=== PATIENT | female | born 1955 | race African-American/Black ===

== ENCOUNTER 2018-10-19 18:50 | Observation (INO) ==
[2018-10-19 19:40] LABS: Apearance,Urine CLOUDY (Clear); Bacteria,Urine Many /HPF (Few); Bilirubin,Urine Small mg/dL (Negative); Blood, Urine Moderate mg/dL (Negative); Glucose,Urine (UA) Negative (Negative); Ketones,Urine 5 mg/dL (Negative); Mucus,Urine Few /LPF (Occasional); Nitrite,Urine Negative (Negative); Protein,Urine 100 MG/DL; RBC,Urine 70 /HPF (0-4); Urine Color Yellow (Yellow); Urine Specific Gravity 1.026 (1.001-1.035); WBC,Urine 2995 /HPF (0-6)
[2018-10-19 19:43] LABS: Barbiturates Screen,Urine Negative (Negative); Benzodiazepines Screen,Urine Negative (Negative); Cannabinoid Screen,Urine Positive (Negative); Opiate Screen,Urine Negative (Negative); Phencyclidine Screen,Urine Negative (Negative)
[2018-10-19 19:52] LABS: Basophils # 0.1 10*3/uL (0.0-0.2); Basophils % 0.6 % (0.0-0.8); Eosinophils # 0.1 10*3/uL (0.0-0.87); Hematocrit 32.8 VOL% (35.7-47.0); Hemoglobin 10.3 GM/DL (12.0-16.0); Immature Granulocytes % 0.2 %; Immature Granulocytes Absolute 0.02 #; Lymphocytes # 2.1 10*3/uL (1.4-4.0); Lymphocytes % 25.7 % (21.3-54.2); Mean Corpuscular HGB Conc 31.4 GM/DL (32-36); Mean Corpuscular Volume 84.5 FL (87-102); Mean Platelet Volume 9.3 FL (9.6-12.0); Monocytes % 7.1 % (1.7-12.7); Neutrophils % 65.4 % (38.7-73.9); Platelet Count 376 T/CUMM (130-400); Red Blood Count 3.88 MC/CUMM (3.8-5.5); Red Cell Distribution Width 13.9 % (9.3-17.3)
[2018-10-19] MEDS ORDERED: cefTRIAXone 1,000 MG in SODIUM CHLORIDE 0.9% 100 ML IV STA (20:15)
[2018-10-19 20:22] LABS: Albumin 3.5 G/DL (3.4-5.0); Bilirubin,Total 0.5 MG/DL (0.2-1.0); Calcium 9.3 MG/DL (8.5-10.1); Osmolality,Calculated 277.8 MOS/KG (273-304); Total Protein 8.1 G/DL (6.4-8.3)
[2018-10-19] MEDS ORDERED: SODIUM CHLORIDE 0.9% 1,000 ML IV STA (20:39)
[2018-10-19] MEDS ORDERED: DEXTROSE 50% 25 GM/50 ML VIAL IV PRN (22:42)
[2018-10-19] MEDS ORDERED: ACETAMINOPHEN 325 MG TABLET PO PRN (22:42)
[2018-10-19] MEDS ORDERED: ONDANSETRON 4 MG/2 ML VIAL IV PRN (22:42)
[2018-10-19] MEDS ORDERED: GLUCAGON 1 MG VIAL IM PRN (22:42)
[2018-10-19] MEDS: SODIUM CHLORIDE 0.9% 1,000 ML IV SCH (23:51)
[2018-10-20 05:50] LABS: Basophils # 0.1 10*3/uL (0.0-0.2); Basophils % 0.9 % (0.0-0.8); Eosinophils # 0.1 10*3/uL (0.0-0.87); Eosinophils % 1.9 % (0.00-10.9); Hematocrit 28.7 VOL% (35.7-47.0); Hemoglobin 9.1 GM/DL (12.0-16.0); Immature Granulocytes % 0.3 %; Immature Granulocytes Absolute 0.02 #; Lymphocytes # 3.6 10*3/uL (1.4-4.0); Lymphocytes % 55.3 % (21.3-54.2); Mean Corpuscular HGB Conc 31.7 GM/DL (32-36); Mean Corpuscular Volume 85.4 FL (87-102); Mean Platelet Volume 9.8 FL (9.6-12.0); Monocytes % 8.7 % (1.7-12.7); Neutrophils % 32.9 % (38.7-73.9); Platelet Count 318 T/CUMM (130-400); Red Blood Count 3.36 MC/CUMM (3.8-5.5); Red Cell Distribution Width 13.9 % (9.3-17.3); White Blood Count 6.5 T/CUMM (4-12)
[2018-10-20 06:16] LABS: Calcium 8.6 MG/DL (8.5-10.1); Osmolality,Calculated 281.3 MOS/KG (273-304); Risk Ratio 2.43; Thyroid Stimulating Hormone 0.715 uIU/ml (0.358-3.74); VLDL CHOLESTEROL 16.2 MG/DL
[2018-10-20 06:17] LABS: Atypical Lymphocytes Few; Eosinophils 3 % (0-10); Hypochromasia 1+; Lymphocytes 56 % (20-55); Segmented Neutrophils 32 % (50-85); Total Cells Counted 100
[2018-10-20 06:18] LABS: % Iron Saturation 28.3 % (18-50); Ferritin 289.9 ng/ml (8-252); Microcytosis Slight; Platelet Estimate Normal
[2018-10-20 06:20] LABS: Folate 6.2 NG/ML (5.4-24.0); Vitamin B12 442 PG/ML (211-911)
[2018-10-20 06:56] LABS: Sedimentation Rate-Westergren 81 MM/HR (0-30)
[2018-10-20] MEDS: SODIUM CHLORIDE 0.9% 1,000 ML IV SCH ×2 (08:04→17:18)
[2018-10-20] MEDS: INSULIN LISPRO 100 UNIT/ML SUBCUT SCH ×4 (08:05→21:18)
[2018-10-20 09:47] LABS: Hemoglobin A1 (Alkaline) 96.7 % (96.5-98.5); Hemoglobin A2 (Alkaline) 3.3 % (1.5-3.5)
[2018-10-20] MEDS: cefTRIAXone 1,000 MG in SYRINGE 1 EACH IV SCH (21:21)
[2018-10-21] MEDS: SODIUM CHLORIDE 0.9% 1,000 ML IV SCH ×4 (01:15→20:01)
[2018-10-21 04:09] LABS: Basophils # 0.1 10*3/uL (0.0-0.2); Basophils % 1.1 % (0.0-0.8); Eosinophils # 0.2 10*3/uL (0.0-0.87); Eosinophils % 3.7 % (0.00-10.9); Hematocrit 28.2 VOL% (35.7-47.0); Hemoglobin 9.2 GM/DL (12.0-16.0); Immature Granulocytes % 0.2 %; Immature Granulocytes Absolute 0.01 #; Lymphocytes # 3.4 10*3/uL (1.4-4.0); Lymphocytes % 63.1 % (21.3-54.2); Mean Corpuscular HGB Conc 32.6 GM/DL (32-36); Mean Corpuscular Volume 83.7 FL (87-102); Mean Platelet Volume 9.9 FL (9.6-12.0); Monocytes % 6.8 % (1.7-12.7); Neutrophils % 25.1 % (38.7-73.9); Platelet Count 328 T/CUMM (130-400); Red Blood Count 3.37 MC/CUMM (3.8-5.5); Red Cell Distribution Width 13.9 % (9.3-17.3); White Blood Count 5.4 T/CUMM (4-12)
[2018-10-21 04:36] LABS: Calcium 8.8 MG/DL (8.5-10.1); Osmolality,Calculated 284.8 MOS/KG (273-304)
[2018-10-21 05:07] LABS: Eosinophils 2 % (0-10); Hypochromasia 1+; Lymphocytes 57 % (20-55); Microcytosis 1+; Platelet Estimate Normal; Segmented Neutrophils 36 % (50-85); Total Cells Counted 100
[2018-10-21] MEDS ORDERED: LACTATED RINGERS 1,000 ML IV SCH (08:00)
[2018-10-21] MEDS: INSULIN LISPRO 100 UNIT/ML SUBCUT SCH ×4 (08:36→20:52)
[2018-10-21] MEDS ORDERED: PROPOFOL 200 MG/20 ML VIAL IV ONE (09:00)
[2018-10-21] MEDS ORDERED: LIDOCAINE 2% 5 ML VIAL ONE (09:00)
[2018-10-21] MEDS ORDERED: DEXTROSE 10% 250 ML BAG IV PRN (15:17)
[2018-10-21] MEDS ORDERED: GLUCAGON 1 MG VIAL IM PRN (15:17)
[2018-10-21] MEDS: METOPROLOL TARTRATE 50 MG TABLET PO SCH (17:57)
[2018-10-21] MEDS ORDERED: PHENOL 1.4% THROAT SPRAY 177 ML BOTTLE PO PRN (18:14)
[2018-10-21] MEDS: cefTRIAXone 1,000 MG in SYRINGE 1 EACH IV SCH (20:49)
[2018-10-21] MEDS ORDERED: ATORVASTATIN 80 MG TABLET PO SCH (21:00)
[2018-10-22] MEDS: SODIUM CHLORIDE 0.9% 1,000 ML IV SCH ×2 (04:15→13:31)
[2018-10-22 04:48] LABS: Calcium 8.6 MG/DL (8.5-10.1)
[2018-10-22 04:58] LABS: Basophils # 0.1 10*3/uL (0.0-0.2); Basophils % 1.1 % (0.0-0.8); Eosinophils # 0.2 10*3/uL (0.0-0.87); Eosinophils % 3.2 % (0.00-10.9); Hematocrit 26.4 VOL% (35.7-47.0); Hemoglobin 8.6 GM/DL (12.0-16.0); Immature Granulocytes % 0.2 %; Immature Granulocytes Absolute 0.01 #; Lymphocytes # 3.6 10*3/uL (1.4-4.0); Lymphocytes % 63.9 % (21.3-54.2); Mean Corpuscular HGB Conc 32.6 GM/DL (32-36); Mean Corpuscular Volume 83.3 FL (87-102); Monocytes % 6.7 % (1.7-12.7); Neutrophils % 24.9 % (38.7-73.9); Platelet Count 330 T/CUMM (130-400); Red Blood Count 3.17 MC/CUMM (3.8-5.5); Red Cell Distribution Width 13.7 % (9.3-17.3); White Blood Count 5.6 T/CUMM (4-12)
[2018-10-22] MEDS ORDERED: MAGNESIUM SULF RIDER 4 GM in PREMIX 1 EACH IV PRN (05:41)
[2018-10-22] MEDS ORDERED: MAGNESIUM SULF RIDER 2 GM in PREMIX 1 EACH IV PRN (05:41)
[2018-10-22] MEDS ORDERED: POTASSIUM CHLORIDE 20 MEQ TABLET PO PRN (05:41)
[2018-10-22 05:56] LABS: Band Neutrophils 5 % (0-10); Eosinophils 4 % (0-10); Lymphocytes 61 % (20-55); Platelet Estimate Normal; Segmented Neutrophils 22 % (50-85); Total Cells Counted 100
[2018-10-22 05:57] LABS: Ovalocytes 1+
[2018-10-22] MEDS: INSULIN LISPRO 100 UNIT/ML SUBCUT SCH ×2 (08:29→12:12)
[2018-10-22] MEDS: METOPROLOL TARTRATE 50 MG TABLET PO SCH (09:41)
[2018-10-22 11:42] VITALS: BP 135/71
== END 2018-10-22 15:08 | disposition home or self-care (01) ==
LOC: EDUNIT# → EDBD → N.ED 18:50 → N.EDINP 18:50 → N.TELEN 22:08
PROVIDERS: ADMIT Internal Medicine; ATTEND Internal Medicine

== ENCOUNTER 2019-06-30 07:30 | Inpatient (IN) ==
[2019-06-26 11:32] LABS: Basophils # 0.1 10*3/uL (0.0-0.2); Basophils % 0.9 % (0.0-0.8); Eosinophils # 0.1 10*3/uL (0.0-0.87); Hemoglobin 13.5 GM/DL (12.0-16.0); Immature Granulocytes % 0.3 %; Immature Granulocytes Absolute 0.02 #; Lymphocytes # 2.9 10*3/uL (1.4-4.0); Lymphocytes % 41.3 % (21.3-54.2); Mean Corpuscular HGB Conc 32.1 GM/DL (32-36); Mean Corpuscular Volume 85.4 FL (87-102); Mean Platelet Volume 9.9 FL (9.6-12.0); Monocytes % 6.1 % (1.7-12.7); Neutrophils % 49.4 % (38.7-73.9); Platelet Count 297 T/CUMM (130-400); Red Blood Count 4.92 MC/CUMM (3.8-5.5); Red Cell Distribution Width 12.9 % (9.3-17.3); White Blood Count 6.9 T/CUMM (4-12)
[2019-06-26 11:52] LABS: Calcium 9.1 MG/DL (8.5-10.1); Osmolality,Calculated 282.4 MOS/KG (273-304)
[~2019-06-30 07:30] MED LIST: ALVIMOPAN 12 MG CAPSULE PO ONE; ERTAPENEM 1,000 MG in SODIUM CHLORIDE 0.9% 100 ML IV ONE
[2019-06-30] MEDS ORDERED: DEXAMETHASONE 4 MG/1 ML VIAL ONE (08:50)
[2019-06-30] MEDS ORDERED: BUPIVACAINE MPF 0.25% 30 ML VIAL ONE (08:50)
[2019-06-30] MEDS ORDERED: ALVIMOPAN 12 MG CAPSULE ONE (09:16)
[2019-06-30] MEDS ORDERED: ERTAPENEM 1,000 MG VIAL ONE (09:16)
[2019-06-30] MEDS ORDERED: LACTATED RINGERS 1,000 ML IV SCH (09:30)
[2019-06-30] MEDS ORDERED: TISSUE ADHESIVE 1 EACH APPLICATOR TOP ONE (10:36)
[2019-06-30] MEDS ORDERED: INDOCYANINE GREEN 25 MG VIAL IV ONE (10:36)
[2019-06-30] MEDS ORDERED: SEVOFLURANE 1 UNIT/15 MINUTE INH ONE (15:09)
[2019-06-30] MEDS ORDERED: LIDOCAINE 2% 5 ML VIAL ONE (15:09)
[2019-06-30] MEDS ORDERED: propofoL 200 MG/20 ML VIAL IV ONE (15:09)
[2019-06-30] MEDS ORDERED: fentaNYL 100 MCG/2 ML VIAL ONE (15:10)
[2019-06-30] MEDS ORDERED: ONDANSETRON 4 MG/2 ML VIAL ONE ×2 (15:10→15:58)
[2019-06-30] MEDS ORDERED: METOPROLOL TARTRATE 5 MG/5 ML VIAL IV ONE (15:10)
[2019-06-30] MEDS ORDERED: LABETALOL 100 MG/20 ML VIAL IV ONE ×2 (15:10→15:45)
[2019-06-30] MEDS ORDERED: GLYCOPYRROLATE 0.4 MG/2 ML VIAL ONE (15:10)
[2019-06-30] MEDS ORDERED: SUCCINYLCHOLINE 200 MG/10 ML VIAL ONE (15:11)
[2019-06-30] MEDS ORDERED: NEOSTIGMINE 10 MG/10 ML VIAL ONE (15:11)
[2019-06-30] MEDS ORDERED: ROCURONIUM 100 MG/10 ML VIAL IV ONE (15:11)
[2019-06-30] MEDS ORDERED: MIDAZOLAM 2 MG/2 ML VIAL ONE (15:13)
[2019-06-30 15:57] LABS: Apearance,Urine CLEAR (Clear); Bilirubin,Urine Negative (Negative); Blood, Urine Negative (Negative); Glucose,Urine (UA) >=500 mg/dL (Negative); Ketones,Urine Negative (Negative); Nitrite,Urine Negative (Negative); Protein,Urine Negative; RBC,Urine <1 /HPF (0-4); Urine Color Straw (Yellow); Urine Specific Gravity 1.007 (1.001-1.035); Urine Urobilinogen < 2.0 EU/DL (0.2-1.0); WBC,Urine <1 /HPF (0-6)
[2019-06-30] MEDS: HYDROmorphone 2 MG/1 ML VIAL IV PRN ×3 (15:58→16:22)
[2019-06-30] MEDS ORDERED: HYDROmorphone 2 MG/1 ML VIAL ONE (15:58)
[2019-06-30] MEDS ORDERED: ONDANSETRON 4 MG/2 ML VIAL IV PRN ×2 (16:08→16:51)
[2019-06-30] MEDS ORDERED: HYDROmorphone 2 MG/1 ML VIAL IV PRN (16:51)
[2019-06-30] MEDS: KETOROLAC 30 MG/1 ML VIAL IV SCH ×2 (17:44→22:04)
[2019-06-30] MEDS: METOPROLOL TARTRATE 50 MG TABLET PO SCH (17:44)
[2019-06-30] MEDS: LACTATED RINGERS 1,000 ML IV SCH (17:47)
[2019-06-30 18:11] LABS: Basophils # 0.1 10*3/uL (0.0-0.2); Basophils % 0.3 % (0.0-0.8); Hematocrit 43.5 VOL% (35.7-47.0); Hemoglobin 14.1 GM/DL (12.0-16.0); Immature Granulocytes % 0.6 %; Lymphocytes # 1.2 10*3/uL (1.4-4.0); Lymphocytes % 7.3 % (21.3-54.2); Mean Corpuscular HGB Conc 32.4 GM/DL (32-36); Mean Corpuscular Volume 85.6 FL (87-102); Monocytes % 4.6 % (1.7-12.7); Neutrophils % 87.2 % (38.7-73.9); Platelet Count 330 T/CUMM (130-400); Red Blood Count 5.08 MC/CUMM (3.8-5.5); Red Cell Distribution Width 12.8 % (9.3-17.3); White Blood Count 16.1 T/CUMM (4-12)
[2019-06-30 18:32] LABS: Calcium 9.2 MG/DL (8.5-10.1); Osmolality,Calculated 283.5 MOS/KG (273-304)
[2019-06-30] MEDS: ALVIMOPAN 12 MG CAPSULE PO SCH (20:58)
[2019-06-30] MEDS ORDERED: OXYBUTYNIN XL 10 MG TABLET PO SCH (21:00)
[2019-06-30] MEDS ORDERED: ATORVASTATIN 80 MG TABLET PO SCH (21:00)
[2019-07-01] MEDS: LACTATED RINGERS 1,000 ML IV SCH (02:35)
[2019-07-01] MEDS: KETOROLAC 30 MG/1 ML VIAL IV SCH ×2 (05:27→10:28)
[2019-07-01 06:08] LABS: Basophils % 0.1 % (0.0-0.8); Hematocrit 34.6 VOL% (35.7-47.0); Hemoglobin 11.2 GM/DL (12.0-16.0); Immature Granulocytes % 0.5 %; Immature Granulocytes Absolute 0.09 #; Lymphocytes # 2.3 10*3/uL (1.4-4.0); Lymphocytes % 13.9 % (21.3-54.2); Mean Corpuscular HGB Conc 32.4 GM/DL (32-36); Mean Corpuscular Volume 86.3 FL (87-102); Mean Platelet Volume 10.6 FL (9.6-12.0); Monocytes % 4.9 % (1.7-12.7); Neutrophils % 80.6 % (38.7-73.9); Platelet Count 246 T/CUMM (130-400); Red Blood Count 4.01 MC/CUMM (3.8-5.5); White Blood Count 16.4 T/CUMM (4-12)
[2019-07-01 06:24] LABS: Calcium 8.3 MG/DL (8.5-10.1); Osmolality,Calculated 285.5 MOS/KG (273-304)
[2019-07-01] MEDS ORDERED: ENOXAPARIN 40 MG/0.4 ML SYRINGE SUBCUT SCH (09:00)
[2019-07-01] MEDS: ALVIMOPAN 12 MG CAPSULE PO SCH (10:27)
[2019-07-01] MEDS: METOPROLOL TARTRATE 50 MG TABLET PO SCH (10:31)
[2019-07-01 12:03] VITALS: BP 143/60
== END 2019-07-01 15:09 | disposition home or self-care (01) | DRG 330 ==
LOC: N.SDSINP 08:07 → N.OR 08:07 → N.SDSINP 08:08 → N.3E 16:50 → EDSDCBED 16:50 → N.SDSINP 16:50 → EDSTATUS 20:45 → N.OR 07-01 15:09 → N.3E 07-06 12:28
PROVIDERS: ADMIT Surgery; ATTEND Surgery